=== PATIENT | female | born 1955 ===

== ENCOUNTER 2020-09-27 09:05 | Inpatient (IN) ==
[2020-09-27] MEDS ORDERED: GLUCAGON 1 MG VIAL IM PRN (09:41)
[2020-09-27] MEDS ORDERED: DEXTROSE 50% 25 GM/50 ML VIAL IV PRN (09:41)
[2020-09-27] MEDS: INSULIN REGULAR 100 UNIT/ML SUBCUT SCH ×2 (20:45→22:48)
[2020-09-27] MEDS: METOPROLOL TARTRATE 25 MG TABLET PO SCH (22:51)
[2020-09-27] MEDS: SODIUM CHLORIDE 0.9% 1,000 ML IV SCH (22:54)
[2020-09-28 04:28] LABS: ABG Base Excess 10.7 MMOL/L (-2.5-2.5); ABG HCO3 36.8 MMOL/L (20-26); ABG Oxygen Saturation 96.7 % (95-100); ABG PCO2 61.2 MM HG (35-48); ABG PH 7.397 (7.35-7.45); ABG PO2 95.5 MM HG (80-95); ABG TCO2 38.7 MMOL/L (23-27); Allen Test Positive
[2020-09-28 05:37] LABS: Basophils % 0.2 % (0.0-0.8); Eosinophils % 0.6 % (0.00-10.9); Hematocrit 21.9 VOL% (35.7-47.0); Hemoglobin 6.7 GM/DL (12.0-16.0); Immature Granulocytes % 0.2 %; Immature Granulocytes Absolute 0.01 #; Lymphocytes # 1.5 10*3/uL (1.4-4.0); Lymphocytes % 28.5 % (21.3-54.2); Mean Corpuscular HGB Conc 30.6 GM/DL (32-36); Mean Corpuscular Volume 73.2 FL (87-102); Mean Platelet Volume 13.2 FL (9.6-12.0); Monocytes % 9.1 % (1.7-12.7); Neutrophils % 61.4 % (38.7-73.9); Platelet Count 200 T/CUMM (130-400); Red Blood Count 2.99 MC/CUMM (3.8-5.5); Red Cell Distribution Width 18.2 % (9.3-17.3); White Blood Count 5.2 T/CUMM (4-12)
[2020-09-28 05:47] LABS: Total Protein 7.6 G/DL (6.4-8.3)
[2020-09-28 06:20] LABS: Hypochromasia 3+; Microcytosis 2+; Platelet Estimate Normal; Target Cells 1+
[2020-09-28] MEDS ORDERED: SODIUM CHLORIDE 0.9% 1,000 ML IV PRN (08:37)
[2020-09-28] MEDS ORDERED: FUROSEMIDE 40 MG/4 ML VIAL IV ONE ×2 (08:39→17:30)
[2020-09-28] MEDS: METOPROLOL TARTRATE 25 MG TABLET PO SCH ×2 (09:17→21:24)
[2020-09-28] MEDS: FUROSEMIDE 80 MG TABLET PO SCH (09:17)
[2020-09-28] MEDS: ATORVASTATIN 80 MG TABLET PO SCH (09:17)
[2020-09-28] MEDS: INSULIN REGULAR 100 UNIT/ML SUBCUT SCH ×4 (09:18→21:48)
[2020-09-28] MEDS ORDERED: PANTOPRAZOLE 40 MG TABLET PO ONE (10:15)
[2020-09-28] MEDS ORDERED: DIAZEPAM 5 MG TABLET PO ONE (10:15)
[2020-09-28] MEDS ORDERED: ALBUTEROL/IPRATROPIUM 3 ML NEB RESP TX ONE (11:24)
[2020-09-28] MEDS: ALBUTEROL/IPRATROPIUM 3 ML NEB RESP TX SCH ×2 (13:16→19:51)
[2020-09-28] MEDS: SODIUM CHLORIDE 0.9% 1,000 ML IV SCH (13:34)
[2020-09-28] MEDS: CHLORHEXIDINE 4% SOLN 118 ML BOTTLE TOP SCH ×2 (17:20→21:28)
[2020-09-29] MEDS: oxyCODONE/ACETAMINOPHEN 5-325 MG TABLET PO PRN (00:34)
[2020-09-29] MEDS: ALBUTEROL/IPRATROPIUM 3 ML NEB RESP TX SCH ×4 (01:25→19:05)
[2020-09-29 01:39] LABS: Hematocrit 25.8 VOL% (35.7-47.0); Hemoglobin 8.2 GM/DL (12.0-16.0)
[2020-09-29] MEDS ORDERED: PAPAVERINE 60 MG/2 ML VIAL ONE (04:24)
[2020-09-29] MEDS ORDERED: VANCOMYCIN 500 MG VIAL ONE (04:25)
[2020-09-29] MEDS ORDERED: VANCOMYCIN 1,000 MG VIAL ONE (04:25)
[2020-09-29] MEDS: CHLORHEXIDINE 4% SOLN 118 ML BOTTLE TOP SCH (04:45)
[2020-09-29] MEDS: METOPROLOL TARTRATE 25 MG TABLET PO SCH ×2 (05:45→12:17)
[2020-09-29] MEDS ORDERED: CALCIUM CHLORIDE 1,000 MG/10 ML VIAL IV ONE (05:55)
[2020-09-29] MEDS ORDERED: ePHEDrine 50 MG/ML VIAL ONE (05:55)
[2020-09-29] MEDS ORDERED: MIDAZOLAM 10 MG/2 ML VIAL ONE ×3 (05:55→06:09)
[2020-09-29] MEDS ORDERED: SUFentanil 250 MCG/5 ML AMP ONE (05:55)
[2020-09-29] MEDS ORDERED: VECURONIUM 10 MG VIAL IV ONE ×4 (05:56)
[2020-09-29] MEDS ORDERED: FUROSEMIDE 20 MG/2 ML VIAL ONE ×3 (05:56→11:16)
[2020-09-29] MEDS ORDERED: ETOMIDATE 40 MG/20 ML VIAL IV ONE (05:56)
[2020-09-29] MEDS ORDERED: MINERAL OIL/PETROLATUM OPH OINT 3.5 GM TUBE ONE (05:56)
[2020-09-29] MEDS ORDERED: LIDOCAINE 2% 5 ML VIAL ONE ×2 (05:56→11:15)
[2020-09-29] MEDS ORDERED: HEPARIN/NACL 0.9% 2 UNITS/ML 500 ML IV ONE (05:57)
[2020-09-29] MEDS ORDERED: PHENYLEPHRINE DRIP 20 MG/250 ML PREMIX IV ONE (05:57)
[2020-09-29] MEDS ORDERED: AMINOCAPROIC ACID 5,000 MG/20 ML VIAL ONE ×4 (05:57)
[2020-09-29] MEDS ORDERED: NITROGLYCERIN DRIP 50 MG/250 ML BOTTLE IV ONE (05:57)
[2020-09-29] MEDS ORDERED: SODIUM CHLORIDE 0.9% 1,000 ML IV ONE ×2 (05:58→11:55)
[2020-09-29] MEDS ORDERED: SEVOFLURANE 1 UNIT/15 MINUTE INH ONE ×14 (05:58→11:54)
[2020-09-29] MEDS ORDERED: SODIUM CHLORIDE 0.9% 250 ML IV ONE (05:58)
[2020-09-29] MEDS ORDERED: LACTATED RINGERS 1,000 ML IV ONE (05:58)
[2020-09-29] MEDS ORDERED: DIAZEPAM 5 MG TABLET PO ONE (06:00)
[2020-09-29] MEDS ORDERED: CEFUROXIME INJ 1,500 MG in SODIUM CHLORIDE 0.9% 100 ML IV ONE (06:00)
[2020-09-29] MEDS ORDERED: PANTOPRAZOLE 40 MG TABLET PO ONE (06:00)
[2020-09-29] MEDS ORDERED: ALBUTEROL 2.5 MG/3 ML NEB RESP TX ONE (06:25)
[2020-09-29 08:26] LABS: ABG Base Excess 8.5 MMOL/L (-2.5-2.5); ABG HCO3 32.3 MMOL/L (20-26); ABG PCO2 46.3 MM HG (35-48); ABG PH 7.464 (7.35-7.45); ABG TCO2 31.1 MMOL/L (23-27); Glucose Heart Surgery 76 MG/DL (74-106); Hematocrit Heart Surgery 23.7 PERCENT (37-47); Hemoglobin Heart Surgery 7.6 G/DL (12.0-16.0); Ionized Calcium Arterial 1.11 MMOL/L (1.21-1.46); PCO2 Patient Temp Arterial 46.3 MMHG; PH Patient Temp Arterial 7.464; Patient Temperature 37 CELCIUS; Potassium Heart/CVR 3.6 MMOL/L (3.5-5.1); Sodium Heart/CVR 139 MMOL/L (135-145)
[2020-09-29] MEDS ORDERED: CHLORHEXIDINE 0.12% ORAL RINSE 60 ML BOTTLE SWISH/SPIT SCH (09:00)
[2020-09-29 09:06] LABS: Bilirubin,Urine Negative (Negative); Blood, Urine Negative (Negative); Glucose,Urine (UA) Negative (Negative); Hyaline Casts,Urine 4 /LPF (0-3); Ketones,Urine Negative (Negative); Mucus,Urine Occasional /LPF (Occasional); Nitrite,Urine Negative (Negative); Protein,Urine 100 MG/DL; RBC,Urine 1 /HPF (0-4); Squamous Epithelial Cell,Urine Occasional /HPF (0-10); Urine Appearance CLEAR (Clear); Urine Color Yellow (Yellow); WBC,Urine <1 /HPF (0-6)
[2020-09-29] MEDS ORDERED: diphenhydrAMINE 50 MG/1 ML VIAL ONE (09:41)
[2020-09-29] MEDS ORDERED: EPINEPHrine 1 MG/ML VIAL ONE ×2 (09:41→09:47)
[2020-09-29] MEDS ORDERED: PHENYLEPHRINE DRIP 40 MG/250 ML PREMIX IV ONE (09:45)
[2020-09-29] MEDS ORDERED: SODIUM BICARBONATE 50 MEQ/50 ML VIAL IV ONE ×2 (09:45→11:16)
[2020-09-29] MEDS ORDERED: NITROPRUSSIDE 50 MG/2 ML VIAL ONE (09:45)
[2020-09-29] MEDS ORDERED: POTASSIUM CHLORIDE RIDER 100 ML IV ONE (09:45)
[2020-09-29] MEDS ORDERED: CALCIUM CHLORIDE 1,000 MG/10 ML SYRINGE IV ONE (09:46)
[2020-09-29] MEDS ORDERED: ALBUMIN 5% 12.5 GM/250 ML VIAL IV ONE ×2 (09:47)
[2020-09-29] MEDS ORDERED: LIDOCAINE 100 MG/5 ML SYRINGE ONE (09:47)
[2020-09-29] MEDS ORDERED: ATROPINE 1 MG/10 ML SYRINGE ONE (09:47)
[2020-09-29] MEDS ORDERED: EPINEPHrine 1 MG/10 ML SYRINGE ONE (09:47)
[2020-09-29] MEDS ORDERED: FAMOTIDINE 20 MG/2 ML VIAL IV ONE (09:47)
[2020-09-29 09:52] LABS: Hematocrit Heart Surgery 24.6 PERCENT (37-47); Hemoglobin Heart Surgery 7.9 G/DL (12.0-16.0); PCO2 Patient Temp Venous 31.6 MM HG; PH Patient Temp Venous 7.573; VBG Base Excess 7.1 MEQ/L (0-4); VBG HCO3 30.7 MEQ/L (24-28); VBG Oxygen Saturation 82.3 %; VBG PCO2 36.5 MMHG (41-51); VBG PH 7.527; VBG PO2 41.8 MMHG (17-40)
[2020-09-29 10:27] LABS: Hematocrit Heart Surgery 28.2 PERCENT (37-47); Hemoglobin Heart Surgery 9.1 G/DL (12.0-16.0); PCO2 Patient Temp Venous 36.1 MM HG; PH Patient Temp Venous 7.519; PO2 Patient Temp Venous 41.6 MM HG; Potassium Heart/CVR 4.1 MMOL/L (3.5-5.1); VBG Base Excess 6.3 MEQ/L (0-4); VBG HCO3 29.9 MEQ/L (24-28); VBG Oxygen Saturation 82.9 %; VBG PCO2 37.9 MMHG (41-51); VBG PH 7.503; VBG PO2 44.6 MMHG (17-40)
[2020-09-29 10:57] LABS: ABG Base Excess 4.5 MMOL/L (-2.5-2.5); ABG HCO3 28.4 MMOL/L (20-26); ABG Oxygen Saturation 93.5 % (95-100); ABG PCO2 45.2 MM HG (35-48); ABG PH 7.422 (7.35-7.45); ABG PO2 69.2 MM HG (80-95); ABG TCO2 27.1 MMOL/L (23-27); Glucose Heart Surgery 166 MG/DL (74-106); Hematocrit Heart Surgery 28.6 PERCENT (37-47); Hemoglobin Heart Surgery 9.2 G/DL (12.0-16.0); Ionized Calcium Arterial 1.12 MMOL/L (1.21-1.46); PCO2 Patient Temp Arterial 45.2 MMHG; PH Patient Temp Arterial 7.422; PO2 Patient Temp Arterial 69.2 MM HG; Patient Temperature 37 CELCIUS; Potassium Heart/CVR 3.2 MMOL/L (3.5-5.1); Sodium Heart/CVR 139 MMOL/L (135-145)
[2020-09-29] MEDS ORDERED: ALBUMIN 25% 25 GM/100 ML VIAL IV ONE (11:15)
[2020-09-29] MEDS ORDERED: DEXTROSE 5% KCL 20 MEQ 20 MEQ/1,000 ML BAG IV ONE (11:15)
[2020-09-29] MEDS ORDERED: MANNITOL 100 GM/500 ML BAG IV ONE (11:15)
[2020-09-29] MEDS ORDERED: methylPREDNISolone SOD SUC 1,000 MG/8 ML VIAL ONE (11:15)
[2020-09-29] MEDS ORDERED: MAGNESIUM SULFATE 5 GM/10 ML VIAL IV ONE (11:15)
[2020-09-29] MEDS ORDERED: PROTAMINE SULFATE 250 MG/25 ML VIAL IV ONE (11:16)
[2020-09-29] MEDS ORDERED: HEPARIN 10,000 UNIT/10 ML VIAL ONE (11:16)
[2020-09-29] MEDS ORDERED: NITROPRUSSIDE 100 MG in DEXTROSE 5% 250 ML IV PRN (11:20)
[2020-09-29] MEDS ORDERED: MORPHINE 10 MG/1 ML VIAL IV PRN (11:20)
[2020-09-29] MEDS ORDERED: CHLORHEXIDINE 4% SOLN 118 ML BOTTLE TOP PRN (11:20)
[2020-09-29] MEDS ORDERED: MIDAZOLAM 10 MG/2 ML VIAL IV PRN (11:20)
[2020-09-29] MEDS ORDERED: DEXTROSE 50% 25 GM/50 ML VIAL IV PRN ×2 (11:20)
[2020-09-29] MEDS ORDERED: MAGNESIUM SULF RIDER 2 GM in PREMIX 1 EACH IV PRN (11:20)
[2020-09-29] MEDS ORDERED: LACTATED RINGERS 250 ML IV PRN (11:20)
[2020-09-29] MEDS ORDERED: MAGNESIUM SULF RIDER 4 GM in PREMIX 1 EACH IV PRN (11:20)
[2020-09-29] MEDS ORDERED: ONDANSETRON 4 MG/2 ML VIAL IV PRN (11:20)
[2020-09-29] MEDS ORDERED: MIDAZOLAM 2 MG/2 ML VIAL IV PRN (11:20)
[2020-09-29] MEDS ORDERED: CALCIUM CHLORIDE 1,000 MG/10 ML SYRINGE IV PRN (11:20)
[2020-09-29] MEDS ORDERED: ALBUMIN 5% 12.5 GM in PREMIX 1 EACH IV PRN (11:20)
[2020-09-29] MEDS ORDERED: INSULIN REGULAR 100 UNIT/ML IV PRN (11:20)
[2020-09-29] MEDS ORDERED: PHENYLEPHRINE DRIP 40 MG/250 ML PREMIX IV PRN (11:20)
[2020-09-29] MEDS ORDERED: INSULIN REGULAR 100 UNIT/ML IV ONE (11:20)
[2020-09-29] MEDS ORDERED: VECURONIUM 10 MG VIAL IV PRN ×2 (11:20)
[2020-09-29] MEDS ORDERED: ACETAMINOPHEN 650 MG SUPP RECTAL PRN (11:20)
[2020-09-29] MEDS: NITROGLYCERIN DRIP 50 MG/250 ML BOTTLE IV PRN (11:40)
[2020-09-29] MEDS: POTASSIUM CHLORIDE RIDER 20 MEQ in PREMIX 1 EACH IV PRN ×3 (11:40→17:07)
[2020-09-29] MEDS: SODIUM CHLORIDE 0.45% 1,000 ML IV SCH ×2 (11:40)
[2020-09-29] MEDS ORDERED: SODIUM CHLORIDE 0.9% 100 ML IV ONE (11:55)
[2020-09-29] MEDS: POTASSIUM CHLORIDE RIDER 10 MEQ in PREMIX 1 EACH IV PRN ×3 (12:10→17:40)
[2020-09-29 12:13] LABS: ABG Base Excess 6.3 MMOL/L (-2.5-2.5); ABG HCO3 30.1 MMOL/L (20-26); ABG Oxygen Saturation 98.8 % (95-100); ABG PCO2 37.3 MM HG (35-48); ABG PH 7.509 (7.35-7.45); ABG TCO2 26.9 MMOL/L (23-27); Glucose Heart Surgery 170 MG/DL (74-106); Hematocrit Heart Surgery 30.3 PERCENT (37-47); Hemoglobin Heart Surgery 9.8 G/DL (12.0-16.0); Potassium Heart/CVR 4.2 MMOL/L (3.5-5.1)
[2020-09-29] MEDS: INSULIN REGULAR 100 UNIT/ML SUBCUT SCH ×2 (12:13→12:16)
[2020-09-29 12:15] LABS: Basophils % 0.1 % (0.0-0.8); Eosinophils % 0.2 % (0.00-10.9); Hematocrit 28.7 VOL% (35.7-47.0); Hemoglobin 9.7 GM/DL (12.0-16.0); Immature Granulocytes % 1.1 %; Immature Granulocytes Absolute 0.12 #; Lymphocytes # 1.2 10*3/uL (1.4-4.0); Lymphocytes % 11.2 % (21.3-54.2); Mean Corpuscular HGB Conc 33.8 GM/DL (32-36); Mean Corpuscular Volume 76.9 FL (87-102); Monocytes % 4.3 % (1.7-12.7); NRBC # 0.02 10*3/uL; Neutrophils % 83.1 % (38.7-73.9); Platelet Count 196 T/CUMM (130-400); Red Blood Count 3.73 MC/CUMM (3.8-5.5); Red Cell Distribution Width 19.4 % (9.3-17.3)
[2020-09-29] MEDS: FUROSEMIDE 80 MG TABLET PO SCH (12:16)
[2020-09-29] MEDS: ATORVASTATIN 80 MG TABLET PO SCH (12:16)
[2020-09-29] MEDS: SODIUM CHLORIDE 0.9% 1,000 ML IV SCH (12:26)
[2020-09-29 12:34] LABS: INR 1.5; PT Patient Result 15.4 SECS (9.8-11.9)
[2020-09-29 12:46] LABS: Anisocytosis 4+; Hypochromasia 4+; Macrocytosis 2+; Microcytosis 2+; Poikilocytosis 2+
[2020-09-29 12:47] LABS: Schistocytes Few
[2020-09-29 12:48] LABS: Albumin 3.3 G/DL (3.4-5.0); Bilirubin,Total 1.9 MG/DL (0.2-1.0); Calcium 9.5 MG/DL (8.5-10.1); Osmolality,Calculated 285.7 MOS/KG (273-304); Total Protein 6.8 G/DL (6.4-8.3)
[2020-09-29 12:50] LABS: CKMB % 6.2 %; Stomatocytes Few
[2020-09-29 12:51] LABS: Platelet Estimate Adequate; Target Cells 2+
[2020-09-29 12:59] LABS: Troponin I 5.44 NG/ML (0.00-0.045)
[2020-09-29 13:13] LABS: ABG Base Excess 6.7 MMOL/L (-2.5-2.5); ABG Oxygen Saturation 95.2 % (95-100); ABG PH 7.562 (7.35-7.45); ABG PO2 72.9 MM HG (80-95); Glucose Heart Surgery 154 MG/DL (74-106); Potassium Heart/CVR 3.6 MMOL/L (3.5-5.1)
[2020-09-29 17:47] LABS: ABG Base Excess 3.9 MMOL/L (-2.5-2.5); ABG HCO3 27.9 MMOL/L (20-26); ABG Oxygen Saturation 95.8 % (95-100); ABG PCO2 32.3 MM HG (35-48); ABG PH 7.522 (7.35-7.45); ABG PO2 75.2 MM HG (80-95); ABG TCO2 23.9 MMOL/L (23-27); Glucose Heart Surgery 151 MG/DL (74-106); Hematocrit Heart Surgery 31.9 PERCENT (37-47); Hemoglobin Heart Surgery 10.3 G/DL (12.0-16.0); Potassium Heart/CVR 4.9 MMOL/L (3.5-5.1)
[2020-09-29 19:33] LABS: ABG Base Excess 3.9 MMOL/L (-2.5-2.5); ABG HCO3 27.9 MMOL/L (20-26); ABG Oxygen Saturation 95.7 % (95-100); ABG PCO2 33.9 MM HG (35-48); ABG PH 7.506 (7.35-7.45); ABG PO2 75.5 MM HG (80-95); ABG TCO2 24.2 MMOL/L (23-27); Glucose Heart Surgery 152 MG/DL (74-106); Hematocrit Heart Surgery 31.6 PERCENT (37-47); Hemoglobin Heart Surgery 10.2 G/DL (12.0-16.0); Potassium Heart/CVR 4.6 MMOL/L (3.5-5.1)
[2020-09-29] MEDS: INSULIN REGULAR DRIP 100 ML IV SCH (19:37)
[2020-09-29] MEDS: CEFUROXIME INJ 1,500 MG in SYRINGE 1 EACH IV SCH (19:57)
[2020-09-29 20:59] LABS: ABG Base Excess 4.7 MMOL/L (-2.5-2.5); ABG HCO3 28.6 MMOL/L (20-26); ABG Oxygen Saturation 95.4 % (95-100); ABG PCO2 37.6 MM HG (35-48); ABG PH 7.484 (7.35-7.45); ABG PO2 77.5 MM HG (80-95); ABG TCO2 25.6 MMOL/L (23-27); Glucose Heart Surgery 150 MG/DL (74-106); Hematocrit Heart Surgery 31.3 PERCENT (37-47); Hemoglobin Heart Surgery 10.1 G/DL (12.0-16.0); Potassium Heart/CVR 4.5 MMOL/L (3.5-5.1)
[2020-09-29] MEDS: MORPHINE 4 MG/1 ML VIAL IV PRN (21:12)
[2020-09-29] MEDS: CHLORHEXIDINE 0.12% ORAL RINSE 60 ML BOTTLE SWISH/SPIT SCH (21:13)
[2020-09-29 21:37] LABS: CKMB % 4.6 %
[2020-09-29 21:50] LABS: Troponin I 5.07 NG/ML (0.00-0.045)
[2020-09-29] MEDS ORDERED: FUROSEMIDE 40 MG/4 ML VIAL IV ONE (21:58)
[2020-09-29] MEDS ORDERED: FUROSEMIDE 40 MG/4 ML VIAL ONE (22:00)
[2020-09-29 23:00] LABS: ABG Oxygen Saturation 93.2 % (95-100); ABG PCO2 36.6 MM HG (35-48); ABG PH 7.484 (7.35-7.45); ABG PO2 68.1 MM HG (80-95); Glucose Heart Surgery 147 MG/DL (74-106); Hematocrit Heart Surgery 30.3 PERCENT (37-47); Hemoglobin Heart Surgery 9.8 G/DL (12.0-16.0); Potassium Heart/CVR 4.4 MMOL/L (3.5-5.1)
[2020-09-29 23:54] LABS: ABG Base Excess 4.7 MMOL/L (-2.5-2.5); ABG HCO3 28.5 MMOL/L (20-26); ABG Oxygen Saturation 93.4 % (95-100); ABG PCO2 37.3 MM HG (35-48); ABG PH 7.487 (7.35-7.45); ABG PO2 67.7 MM HG (80-95); ABG TCO2 25.6 MMOL/L (23-27); Glucose Heart Surgery 147 MG/DL (74-106); Hematocrit Heart Surgery 30.8 PERCENT (37-47); Potassium Heart/CVR 4.5 MMOL/L (3.5-5.1)
[2020-09-30] MEDS: NITROGLYCERIN DRIP 50 MG/250 ML BOTTLE IV PRN (01:08)
[2020-09-30] MEDS: ALBUTEROL/IPRATROPIUM 3 ML NEB RESP TX SCH ×4 (01:47→19:52)
[2020-09-30 01:48] LABS: ABG Base Excess 5.5 MMOL/L (-2.5-2.5); ABG HCO3 29.3 MMOL/L (20-26); ABG Oxygen Saturation 94.1 % (95-100); ABG PCO2 34.4 MM HG (35-48); ABG PH 7.524 (7.35-7.45); ABG PO2 67.1 MM HG (80-95); ABG TCO2 25.7 MMOL/L (23-27); Glucose Heart Surgery 148 MG/DL (74-106); Hematocrit Heart Surgery 30.2 PERCENT (37-47); Hemoglobin Heart Surgery 9.8 G/DL (12.0-16.0); Potassium Heart/CVR 4.5 MMOL/L (3.5-5.1)
[2020-09-30] MEDS: MORPHINE 4 MG/1 ML VIAL IV PRN ×5 (03:36→21:27)
[2020-09-30 03:57] LABS: Basophils % 0.1 % (0.0-0.8); Hematocrit 29.1 VOL% (35.7-47.0); Hemoglobin 9.7 GM/DL (12.0-16.0); Immature Granulocytes % 0.4 %; Immature Granulocytes Absolute 0.04 #; Lymphocytes # 0.6 10*3/uL (1.4-4.0); Lymphocytes % 6.1 % (21.3-54.2); Mean Corpuscular HGB Conc 33.3 GM/DL (32-36); Mean Corpuscular Volume 78.4 FL (87-102); Mean Platelet Volume 11.9 FL (9.6-12.0); Monocytes % 5.8 % (1.7-12.7); NRBC # 0.02 10*3/uL; Neutrophils % 87.6 % (38.7-73.9); Red Blood Count 3.71 MC/CUMM (3.8-5.5); Red Cell Distribution Width 19.9 % (9.3-17.3); White Blood Count 9.4 T/CUMM (4-12)
[2020-09-30 04:01] LABS: ABG Base Excess 4.8 MMOL/L (-2.5-2.5); ABG HCO3 28.7 MMOL/L (20-26); ABG Oxygen Saturation 98.3 % (95-100); ABG PCO2 35.5 MM HG (35-48); ABG PH 7.504 (7.35-7.45); ABG PO2 97.8 MM HG (80-95); ABG TCO2 25.4 MMOL/L (23-27); Glucose Heart Surgery 145 MG/DL (74-106); Hematocrit Heart Surgery 30.4 PERCENT (37-47); Hemoglobin Heart Surgery 9.8 G/DL (12.0-16.0); Platelet Count 156 T/CUMM (130-400); Potassium Heart/CVR 4.4 MMOL/L (3.5-5.1)
[2020-09-30 04:25] LABS: Albumin 3.1 G/DL (3.4-5.0); Bilirubin,Direct 0.86 MG/DL (0.0-0.20); Calcium 8.7 MG/DL (8.5-10.1); Osmolality,Calculated 286.5 MOS/KG (273-304); Total Protein 6.3 G/DL (6.4-8.3)
[2020-09-30 04:34] LABS: Troponin I 4.6 NG/ML (0.00-0.045)
[2020-09-30 04:35] LABS: Hypochromasia 2+; Platelet Estimate Normal; Target Cells Few
[2020-09-30] MEDS ORDERED: HALOPERIDOL 5 MG/ML AMP IM ONE (06:07)
[2020-09-30] MEDS ORDERED: HALOPERIDOL 5 MG/ML AMP IV ONE (06:15)
[2020-09-30] MEDS ORDERED: AMIODARONE INJ 450 MG in DEXTROSE 5% 241 ML IV SCH (06:30)
[2020-09-30] MEDS: CEFUROXIME INJ 1,500 MG in SYRINGE 1 EACH IV SCH ×2 (08:48→21:25)
[2020-09-30 08:51] LABS: ABG Base Excess 4.3 MMOL/L (-2.5-2.5); ABG HCO3 28.3 MMOL/L (20-26); ABG Oxygen Saturation 99.1 % (95-100); ABG PCO2 33.5 MM HG (35-48); ABG PH 7.515 (7.35-7.45); Glucose Heart Surgery 151 MG/DL (74-106); Hematocrit Heart Surgery 34.3 PERCENT (37-47); Hemoglobin Heart Surgery 11.1 G/DL (12.0-16.0); Potassium Heart/CVR 4.3 MMOL/L (3.5-5.1)
[2020-09-30 11:53] LABS: ABG Base Excess 3.6 MMOL/L (-2.5-2.5); ABG HCO3 27.7 MMOL/L (20-26); ABG Oxygen Saturation 98.9 % (95-100); ABG PCO2 45.1 MM HG (35-48); ABG PH 7.412 (7.35-7.45); Glucose Heart Surgery 154 MG/DL (74-106); Hematocrit Heart Surgery 31.6 PERCENT (37-47); Hemoglobin Heart Surgery 10.2 G/DL (12.0-16.0); Potassium Heart/CVR 4.4 MMOL/L (3.5-5.1)
[2020-09-30] MEDS ORDERED: FUROSEMIDE 40 MG/4 ML VIAL IV ONE ×2 (13:30→17:15)
[2020-09-30] MEDS ORDERED: AMIODARONE 200 MG TABLET PO ONE (14:07)
[2020-09-30] MEDS: CHLORHEXIDINE 0.12% ORAL RINSE 60 ML BOTTLE SWISH/SPIT SCH ×2 (14:48→21:26)
[2020-09-30 15:17] LABS: CKMB % 2.1 %
[2020-09-30 15:21] LABS: Troponin I 3.4 NG/ML (0.00-0.045)
[2020-09-30] MEDS: SODIUM CHLORIDE 0.45% 1,000 ML IV SCH ×4 (16:45→23:36)
[2020-09-30] MEDS: INSULIN REGULAR DRIP 100 ML IV SCH (16:56)
[2020-09-30 18:17] LABS: Calcium 8.4 MG/DL (8.5-10.1); Osmolality,Calculated 283.8 MOS/KG (273-304)
[2020-09-30] MEDS: FUROSEMIDE INJ 100 MG in SODIUM CHLORIDE 0.9% 90 ML IV SCH ×2 (19:03→23:37)
[2020-09-30 20:27] LABS: ABG Base Excess 1.1 MMOL/L (-2.5-2.5); ABG HCO3 25.3 MMOL/L (20-26); ABG Oxygen Saturation 88.7 % (95-100); ABG PCO2 48.5 MM HG (35-48); ABG PH 7.357 (7.35-7.45); ABG PO2 63.6 MM HG (80-95); ABG TCO2 24.7 MMOL/L (23-27); Glucose Heart Surgery 130 MG/DL (74-106); Hematocrit Heart Surgery 33.1 PERCENT (37-47); Hemoglobin Heart Surgery 10.7 G/DL (12.0-16.0)
[2020-10-01] MEDS: ALBUTEROL/IPRATROPIUM 3 ML NEB RESP TX SCH ×4 (00:26→19:16)
[2020-10-01 03:46] LABS: ABG Base Excess 1.4 MMOL/L (-2.5-2.5); ABG HCO3 25.5 MMOL/L (20-26); ABG Oxygen Saturation 89.2 % (95-100); ABG PCO2 47.9 MM HG (35-48); ABG PH 7.365 (7.35-7.45); ABG PO2 63.7 MM HG (80-95); ABG TCO2 24.8 MMOL/L (23-27); Glucose Heart Surgery 112 MG/DL (74-106); Hematocrit Heart Surgery 32.9 PERCENT (37-47); Hemoglobin Heart Surgery 10.6 G/DL (12.0-16.0)
[2020-10-01 03:55] LABS: Basophils % 0.1 % (0.0-0.8); Hematocrit 33.1 VOL% (35.7-47.0); Hemoglobin 10.6 GM/DL (12.0-16.0); Immature Granulocytes % 0.3 %; Immature Granulocytes Absolute 0.04 #; Lymphocytes # 0.6 10*3/uL (1.4-4.0); Lymphocytes % 4.6 % (21.3-54.2); Mean Corpuscular Volume 81.9 FL (87-102); Monocytes % 8.3 % (1.7-12.7); NRBC # 0.03 10*3/uL; Neutrophils % 86.7 % (38.7-73.9); Platelet Count 166 T/CUMM (130-400); Red Blood Count 4.04 MC/CUMM (3.8-5.5); Red Cell Distribution Width 21.3 % (9.3-17.3); White Blood Count 13.4 T/CUMM (4-12)
[2020-10-01 04:10] LABS: Albumin 3.1 G/DL (3.4-5.0); Bilirubin,Direct 0.89 MG/DL (0.0-0.20); Bilirubin,Total 1.3 MG/DL (0.2-1.0); Calcium 8.4 MG/DL (8.5-10.1); Osmolality,Calculated 281.1 MOS/KG (273-304); Total Protein 7.3 G/DL (6.4-8.3)
[2020-10-01] MEDS: FUROSEMIDE INJ 100 MG in SODIUM CHLORIDE 0.9% 90 ML IV SCH ×3 (04:37→15:36)
[2020-10-01] MEDS ORDERED: DOBUTamine 500 MG/250 ML PREMIX IV SCH (06:30)
[2020-10-01] MEDS: AMIODARONE 200 MG TABLET PO SCH ×2 (08:10→20:59)
[2020-10-01] MEDS: CHLORHEXIDINE 0.12% ORAL RINSE 60 ML BOTTLE SWISH/SPIT SCH ×2 (08:10→21:00)
[2020-10-01 12:36] LABS: ABG HCO3 27.8 MMOL/L (20-26); ABG Oxygen Saturation 88.5 % (95-100); ABG PCO2 49.8 MM HG (35-48); ABG PH 7.386 (7.35-7.45); ABG TCO2 27.2 MMOL/L (23-27); Glucose Heart Surgery 106 MG/DL (74-106); Hematocrit Heart Surgery 31.1 PERCENT (37-47); Potassium Heart/CVR 4.5 MMOL/L (3.5-5.1)
[2020-10-01] MEDS: SODIUM CHLORIDE 0.45% 1,000 ML IV SCH ×2 (14:10→14:11)
[2020-10-01 15:14] LABS: Basophils % 0.1 % (0.0-0.8); Hematocrit 31.5 VOL% (35.7-47.0); Immature Granulocytes % 0.5 %; Immature Granulocytes Absolute 0.05 #; Lymphocytes # 0.6 10*3/uL (1.4-4.0); Lymphocytes % 6.2 % (21.3-54.2); Mean Corpuscular HGB Conc 31.7 GM/DL (32-36); Mean Corpuscular Volume 82.5 FL (87-102); Monocytes % 9.5 % (1.7-12.7); Neutrophils % 83.7 % (38.7-73.9); Platelet Count 155 T/CUMM (130-400); Red Blood Count 3.82 MC/CUMM (3.8-5.5); Red Cell Distribution Width 22.1 % (9.3-17.3); White Blood Count 10.1 T/CUMM (4-12)
[2020-10-01] MEDS ORDERED: FUROSEMIDE INJ 100 MG in SODIUM CHLORIDE 0.9% 90 ML IV SCH (15:35)
[2020-10-01 15:37] LABS: Anisocytosis 1+; Target Cells Few
[2020-10-01 15:38] LABS: Platelet Estimate Adequate; Polychromasia Few; Schistocytes Few
[2020-10-02] MEDS: ALBUTEROL/IPRATROPIUM 3 ML NEB RESP TX SCH ×4 (01:05→19:00)
[2020-10-02] MEDS: oxyCODONE/ACETAMINOPHEN 5-325 MG TABLET PO PRN (01:21)
[2020-10-02] MEDS: SODIUM CHLORIDE 0.45% 1,000 ML IV SCH (01:25)
[2020-10-02 03:14] LABS: ABG Base Excess 6.2 MMOL/L (-2.5-2.5); ABG HCO3 29.9 MMOL/L (20-26); ABG Oxygen Saturation 90.3 % (95-100); ABG PCO2 47.9 MM HG (35-48); ABG PH 7.426 (7.35-7.45); ABG PO2 63.6 MM HG (80-95); ABG TCO2 28.8 MMOL/L (23-27); Glucose Heart Surgery 131 MG/DL (74-106); Hematocrit Heart Surgery 29.4 PERCENT (37-47); Hemoglobin Heart Surgery 9.5 G/DL (12.0-16.0); Potassium Heart/CVR 4.2 MMOL/L (3.5-5.1)
[2020-10-02 03:18] LABS: Basophils % 0.1 % (0.0-0.8); Hematocrit 30.4 VOL% (35.7-47.0); Hemoglobin 9.9 GM/DL (12.0-16.0); Immature Granulocytes % 0.5 %; Immature Granulocytes Absolute 0.05 #; Lymphocytes # 0.6 10*3/uL (1.4-4.0); Lymphocytes % 5.2 % (21.3-54.2); Mean Corpuscular HGB Conc 32.6 GM/DL (32-36); Mean Corpuscular Volume 81.1 FL (87-102); Mean Platelet Volume 11.6 FL (9.6-12.0); Monocytes % 7.8 % (1.7-12.7); NRBC # 0.02 10*3/uL; Neutrophils % 86.4 % (38.7-73.9); Platelet Count 151 T/CUMM (130-400); Red Blood Count 3.75 MC/CUMM (3.8-5.5); Red Cell Distribution Width 22.3 % (9.3-17.3); White Blood Count 11.1 T/CUMM (4-12)
[2020-10-02 03:43] LABS: Bilirubin,Direct 0.73 MG/DL (0.0-0.20); Bilirubin,Total 1.2 MG/DL (0.2-1.0); Calcium 8.3 MG/DL (8.5-10.1); Osmolality,Calculated 277.5 MOS/KG (273-304); Total Protein 7.6 G/DL (6.4-8.3)
[2020-10-02] MEDS: FUROSEMIDE INJ 100 MG in SODIUM CHLORIDE 0.9% 90 ML IV SCH (06:02)
[2020-10-02] MEDS: PANTOPRAZOLE 40 MG TABLET PO SCH (08:34)
[2020-10-02] MEDS: ASPIRIN EC 325 MG TABLET PO SCH (08:34)
[2020-10-02] MEDS: AMIODARONE 200 MG TABLET PO SCH ×2 (08:34→21:17)
[2020-10-02] MEDS: CHLORHEXIDINE 0.12% ORAL RINSE 60 ML BOTTLE SWISH/SPIT SCH ×2 (08:36→21:18)
[2020-10-02] MEDS: ATORVASTATIN 40 MG TABLET PO SCH (21:17)
[2020-10-03] MEDS: ALBUTEROL/IPRATROPIUM 3 ML NEB RESP TX SCH ×4 (00:36→19:36)
[2020-10-03] MEDS: FUROSEMIDE INJ 100 MG in SODIUM CHLORIDE 0.9% 90 ML IV SCH (02:19)
[2020-10-03 05:35] LABS: ABG Base Excess 8.8 MMOL/L (-2.5-2.5); ABG Oxygen Saturation 94.3 % (95-100); ABG PCO2 51.2 MM HG (35-48); ABG PO2 75.1 MM HG (80-95); ABG TCO2 35.6 MMOL/L (23-27)
[2020-10-03 06:10] LABS: Basophils % 0.1 % (0.0-0.8); Hematocrit 29.8 VOL% (35.7-47.0); Hemoglobin 9.4 GM/DL (12.0-16.0); Immature Granulocytes % 0.5 %; Immature Granulocytes Absolute 0.05 #; Lymphocytes # 0.6 10*3/uL (1.4-4.0); Mean Corpuscular HGB Conc 31.5 GM/DL (32-36); Mean Corpuscular Volume 82.3 FL (87-102); NRBC # 0.02 10*3/uL; Neutrophils % 85.4 % (38.7-73.9); Platelet Count 151 T/CUMM (130-400); Red Blood Count 3.62 MC/CUMM (3.8-5.5); Red Cell Distribution Width 22.3 % (9.3-17.3); White Blood Count 10.7 T/CUMM (4-12)
[2020-10-03 06:51] LABS: Calcium 8.1 MG/DL (8.5-10.1); Osmolality,Calculated 278.4 MOS/KG (273-304)
[2020-10-03] MEDS: ASPIRIN EC 325 MG TABLET PO SCH (08:47)
[2020-10-03] MEDS: PANTOPRAZOLE 40 MG TABLET PO SCH (08:47)
[2020-10-03] MEDS: AMIODARONE 200 MG TABLET PO SCH ×2 (08:47→21:22)
[2020-10-03] MEDS: CHLORHEXIDINE 0.12% ORAL RINSE 60 ML BOTTLE SWISH/SPIT SCH ×2 (08:47→21:25)
[2020-10-03] MEDS ORDERED: MAGNESIUM SULF RIDER 2 GM in PREMIX 1 EACH IV PRN (14:08)
[2020-10-03] MEDS ORDERED: SODIUM CHLOR 0.45% KCL 20 MEQ 20 MEQ/1,000 ML BAG IV SCH (14:08)
[2020-10-03] MEDS ORDERED: ZALEPLON 5 MG CAPSULE PO PRN (14:08)
[2020-10-03] MEDS ORDERED: GLUCAGON 1 MG VIAL IM PRN ×2 (14:08)
[2020-10-03] MEDS ORDERED: ONDANSETRON 4 MG/2 ML VIAL IV PRN (14:08)
[2020-10-03] MEDS ORDERED: MAGNESIUM HYDROXIDE SUSP 30 ML UDCUP PO PRN (14:08)
[2020-10-03] MEDS ORDERED: MORPHINE 4 MG/1 ML VIAL IV PRN (14:08)
[2020-10-03] MEDS ORDERED: oxyCODONE/ACETAMINOPHEN 5-325 MG TABLET PO PRN (14:08)
[2020-10-03] MEDS ORDERED: ALUMINUM/MAGNES/SIMETH MAX STR 30 ML UDCUP PO PRN (14:08)
[2020-10-03] MEDS ORDERED: DEXTROSE 50% 25 GM/50 ML VIAL IV PRN ×2 (14:08)
[2020-10-03] MEDS ORDERED: MAGNESIUM SULF RIDER 4 GM in PREMIX 1 EACH IV PRN (14:08)
[2020-10-03] MEDS: INSULIN REGULAR 100 UNIT/ML SUBCUT SCH ×3 (14:25→21:24)
[2020-10-03] MEDS: FUROSEMIDE 40 MG TABLET PO SCH ×2 (14:31→15:59)
[2020-10-03] MEDS: ACETAMINOPHEN 325 MG TABLET PO PRN (21:21)
[2020-10-03] MEDS: ATORVASTATIN 40 MG TABLET PO SCH (21:22)
[2020-10-04] MEDS: ALBUTEROL/IPRATROPIUM 3 ML NEB RESP TX SCH ×4 (01:20→18:51)
[2020-10-04] MEDS ORDERED: FUROSEMIDE 40 MG/4 ML VIAL IV ONE (06:00)
[2020-10-04 06:13] LABS: Basophils % 0.1 % (0.0-0.8); Eosinophils % 0.3 % (0.00-10.9); Hematocrit 31.1 VOL% (35.7-47.0); Hemoglobin 9.6 GM/DL (12.0-16.0); Immature Granulocytes % 0.4 %; Immature Granulocytes Absolute 0.04 #; Lymphocytes % 9.8 % (21.3-54.2); Mean Corpuscular HGB Conc 30.9 GM/DL (32-36); Mean Corpuscular Volume 84.3 FL (87-102); Mean Platelet Volume 12.6 FL (9.6-12.0); Monocytes % 9.8 % (1.7-12.7); Neutrophils % 79.6 % (38.7-73.9); Platelet Count 156 T/CUMM (130-400); Red Blood Count 3.69 MC/CUMM (3.8-5.5); Red Cell Distribution Width 22.1 % (9.3-17.3); White Blood Count 10.4 T/CUMM (4-12)
[2020-10-04 06:30] LABS: Alanine Aminotransferase 35 U/L (13-56); Albumin 2.7 G/DL (3.4-5.0); Alkaline Phosphatase 93 U/L (45-117); Aspartate Amino Transferase 25 U/L (0-37); Bilirubin,Indirect 0.6 MG/DL (0.0-1.0); Blood Urea Nitrogen 51 MG/DL (7-18); Calcium 8.1 MG/DL (8.5-10.1); Estimated Glom Filtration Rate 35 ML/MIN; Glucose 94 MG/DL (74-106); Total Protein 6.9 G/DL (6.4-8.3)
[2020-10-04 07:18] LABS: Anisocytosis 1+; Hypochromasia 2+; Macrocytosis 1+; Platelet Estimate Adequate; Polychromasia Slight; Target Cells Few
[2020-10-04] MEDS: INSULIN REGULAR 100 UNIT/ML SUBCUT SCH ×5 (09:31→20:54)
[2020-10-04] MEDS: CHLORHEXIDINE 0.12% ORAL RINSE 60 ML BOTTLE SWISH/SPIT SCH ×2 (09:31→20:54)
[2020-10-04] MEDS: FUROSEMIDE 40 MG TABLET PO SCH ×2 (09:34→15:03)
[2020-10-04] MEDS: ASPIRIN EC 325 MG TABLET PO SCH (09:34)
[2020-10-04] MEDS: DOCUSATE SODIUM 100 MG CAPSULE PO SCH (09:34)
[2020-10-04] MEDS: AMIODARONE 200 MG TABLET PO SCH ×2 (09:34→20:53)
[2020-10-04] MEDS: FERROUS SULFATE 325 MG TABLET PO SCH (09:35)
[2020-10-04] MEDS: POTASSIUM CHLORIDE 20 MEQ TABLET PO PRN ×2 (09:35→12:02)
[2020-10-04] MEDS: PANTOPRAZOLE 40 MG TABLET PO SCH (09:36)
[2020-10-04] MEDS: ATORVASTATIN 40 MG TABLET PO SCH (20:53)
[2020-10-05] MEDS: ALBUTEROL/IPRATROPIUM 3 ML NEB RESP TX SCH ×4 (01:40→19:09)
[2020-10-05 05:54] LABS: Basophils % 0.1 % (0.0-0.8); Eosinophils % 0.4 % (0.00-10.9); Hemoglobin 9.9 GM/DL (12.0-16.0); Immature Granulocytes % 0.6 %; Immature Granulocytes Absolute 0.07 #; Lymphocytes # 1.1 10*3/uL (1.4-4.0); Lymphocytes % 10.3 % (21.3-54.2); Mean Corpuscular Volume 84.8 FL (87-102); Mean Platelet Volume 12.5 FL (9.6-12.0); Monocytes % 9.6 % (1.7-12.7); Platelet Count 187 T/CUMM (130-400); Red Blood Count 3.89 MC/CUMM (3.8-5.5); Red Cell Distribution Width 22.2 % (9.3-17.3); White Blood Count 10.9 T/CUMM (4-12)
[2020-10-05 06:21] LABS: Alanine Aminotransferase 34 U/L (13-56); Albumin 2.9 G/DL (3.4-5.0); Alkaline Phosphatase 100 U/L (45-117); Aspartate Amino Transferase 20 U/L (0-37); Bilirubin,Indirect 0.4 MG/DL (0.0-1.0); Blood Urea Nitrogen 40 MG/DL (7-18); Calcium 8.8 MG/DL (8.5-10.1); Estimated Glom Filtration Rate 42 ML/MIN; Glucose 92 MG/DL (74-106); Osmolality,Calculated 279.1 MOS/KG (273-304); Total Protein 7.2 G/DL (6.4-8.3)
[2020-10-05 07:21] LABS: Hypochromasia 2+; Target Cells 2+
[2020-10-05 07:22] LABS: Platelet Estimate Normal
[2020-10-05] MEDS: INSULIN REGULAR 100 UNIT/ML SUBCUT SCH ×4 (08:27→22:15)
[2020-10-05] MEDS: LACTULOSE 20 GM/30 ML UDCUP PO PRN (09:05)
[2020-10-05] MEDS: ACETAMINOPHEN 325 MG TABLET PO PRN (09:06)
[2020-10-05] MEDS: ASPIRIN EC 325 MG TABLET PO SCH (09:06)
[2020-10-05] MEDS: POTASSIUM CHLORIDE 20 MEQ TABLET PO PRN ×2 (09:06→11:27)
[2020-10-05] MEDS: FUROSEMIDE 40 MG TABLET PO SCH ×3 (09:07→15:51)
[2020-10-05] MEDS: CHLORHEXIDINE 0.12% ORAL RINSE 60 ML BOTTLE SWISH/SPIT SCH ×2 (09:08→21:27)
[2020-10-05] MEDS: PANTOPRAZOLE 40 MG TABLET PO SCH (09:08)
[2020-10-05] MEDS: FERROUS SULFATE 325 MG TABLET PO SCH (09:08)
[2020-10-05] MEDS: AMIODARONE 200 MG TABLET PO SCH ×2 (09:08→21:27)
[2020-10-05] MEDS: DOCUSATE SODIUM 100 MG CAPSULE PO SCH (09:09)
[2020-10-05] MEDS: POLYETHYLENE GLYCOL POWDER 17 GM PACK PO PRN (09:43)
[2020-10-05] MEDS: ATORVASTATIN 40 MG TABLET PO SCH (21:27)
[2020-10-06] MEDS: ALBUTEROL/IPRATROPIUM 3 ML NEB RESP TX SCH ×4 (01:25→19:31)
[2020-10-06 04:49] LABS: Calcium 8.6 MG/DL (8.5-10.1); Osmolality,Calculated 275.4 MOS/KG (273-304)
[2020-10-06] MEDS ORDERED: LACTULOSE 20 GM/30 ML UDCUP PO ONE (08:05)
[2020-10-06] MEDS: INSULIN REGULAR 100 UNIT/ML SUBCUT SCH ×4 (08:07→21:02)
[2020-10-06] MEDS ORDERED: BISACODYL 5 MG TABLET PO ONE (09:25)
[2020-10-06] MEDS: ASPIRIN EC 325 MG TABLET PO SCH (09:45)
[2020-10-06] MEDS: POTASSIUM CHLORIDE 20 MEQ TABLET PO SCH (09:46)
[2020-10-06] MEDS: FUROSEMIDE 40 MG TABLET PO SCH ×2 (09:46→15:17)
[2020-10-06] MEDS: PANTOPRAZOLE 40 MG TABLET PO SCH (09:46)
[2020-10-06] MEDS: FERROUS SULFATE 325 MG TABLET PO SCH (09:46)
[2020-10-06] MEDS: DOCUSATE SODIUM 100 MG CAPSULE PO SCH (09:46)
[2020-10-06] MEDS: AMIODARONE 200 MG TABLET PO SCH ×2 (09:46→21:02)
[2020-10-06] MEDS: CHLORHEXIDINE 0.12% ORAL RINSE 60 ML BOTTLE SWISH/SPIT SCH ×2 (11:00→21:02)
[2020-10-06] MEDS: ACETAMINOPHEN 325 MG TABLET PO PRN (14:09)
[2020-10-06] MEDS: ATORVASTATIN 40 MG TABLET PO SCH (21:02)
[2020-10-07] MEDS: ALBUTEROL/IPRATROPIUM 3 ML NEB RESP TX SCH ×4 (00:39→19:52)
[2020-10-07 03:44] LABS: Basophils % 0.2 % (0.0-0.8); Eosinophils % 0.3 % (0.00-10.9); Immature Granulocytes % 1.1 %; Immature Granulocytes Absolute 0.11 #; Lymphocytes # 1.1 10*3/uL (1.4-4.0); Lymphocytes % 10.7 % (21.3-54.2); Mean Corpuscular HGB Conc 31.3 GM/DL (32-36); Mean Corpuscular Volume 81.6 FL (87-102); Mean Platelet Volume 11.6 FL (9.6-12.0); Monocytes % 8.7 % (1.7-12.7); Platelet Count 215 T/CUMM (130-400); Red Blood Count 3.92 MC/CUMM (3.8-5.5); Red Cell Distribution Width 21.8 % (9.3-17.3); White Blood Count 10.1 T/CUMM (4-12)
[2020-10-07 04:10] LABS: Alanine Aminotransferase 29 U/L (13-56); Albumin 2.9 G/DL (3.4-5.0); Alkaline Phosphatase 109 U/L (45-117); Aspartate Amino Transferase 23 U/L (0-37); Bilirubin,Indirect 0.8 MG/DL (0.0-1.0); Blood Urea Nitrogen 39 MG/DL (7-18); Calcium 9.2 MG/DL (8.5-10.1); Estimated Glom Filtration Rate 33 ML/MIN; Glucose 106 MG/DL (74-106); Osmolality,Calculated 276.2 MOS/KG (273-304); Total Protein 7.4 G/DL (6.4-8.3)
[2020-10-07] MEDS ORDERED: SODIUM PHOSPHATE ENEMA 133 ML BOTTLE RECTAL ONE (08:34)
[2020-10-07] MEDS: POTASSIUM CHLORIDE 20 MEQ TABLET PO SCH (08:52)
[2020-10-07] MEDS: FERROUS SULFATE 325 MG TABLET PO SCH (08:52)
[2020-10-07] MEDS: DOCUSATE SODIUM 100 MG CAPSULE PO SCH (08:52)
[2020-10-07] MEDS: ASPIRIN EC 325 MG TABLET PO SCH (08:52)
[2020-10-07] MEDS: PANTOPRAZOLE 40 MG TABLET PO SCH (08:52)
[2020-10-07] MEDS: FUROSEMIDE 40 MG TABLET PO SCH ×2 (08:52→16:12)
[2020-10-07] MEDS: CHLORHEXIDINE 0.12% ORAL RINSE 60 ML BOTTLE SWISH/SPIT SCH ×2 (08:53→21:48)
[2020-10-07] MEDS: POLYETHYLENE GLYCOL POWDER 17 GM PACK PO PRN (08:53)
[2020-10-07] MEDS: AMIODARONE 200 MG TABLET PO SCH ×2 (08:53→21:47)
[2020-10-07] MEDS: ACETAMINOPHEN 325 MG TABLET PO PRN (09:15)
[2020-10-07] MEDS: INSULIN REGULAR 100 UNIT/ML SUBCUT SCH ×4 (09:36→21:48)
[2020-10-07] MEDS: LACTULOSE 20 GM/30 ML UDCUP PO PRN (16:12)
[2020-10-07] MEDS ORDERED: ATORVASTATIN 80 MG TABLET PO SCH (21:00)
[2020-10-08] MEDS: ALBUTEROL/IPRATROPIUM 3 ML NEB RESP TX SCH ×2 (00:29→07:34)
[2020-10-08] MEDS: ACETAMINOPHEN 325 MG TABLET PO PRN ×2 (04:22→09:35)
[2020-10-08 05:52] LABS: Basophils % 0.2 % (0.0-0.8); Eosinophils % 0.2 % (0.00-10.9); Hematocrit 30.3 VOL% (35.7-47.0); Hemoglobin 9.6 GM/DL (12.0-16.0); Immature Granulocytes % 0.8 %; Immature Granulocytes Absolute 0.08 #; Lymphocytes # 1.4 10*3/uL (1.4-4.0); Lymphocytes % 13.4 % (21.3-54.2); Mean Corpuscular HGB Conc 31.7 GM/DL (32-36); Mean Platelet Volume 11.7 FL (9.6-12.0); Monocytes % 10.3 % (1.7-12.7); Neutrophils % 75.1 % (38.7-73.9); Platelet Count 226 T/CUMM (130-400); Red Blood Count 3.65 MC/CUMM (3.8-5.5); Red Cell Distribution Width 21.8 % (9.3-17.3); White Blood Count 10.1 T/CUMM (4-12)
[2020-10-08 06:14] LABS: Calcium 9.3 MG/DL (8.5-10.1); Osmolality,Calculated 276.2 MOS/KG (273-304)
[2020-10-08 06:39] LABS: Alanine Aminotransferase 37 U/L (13-56); Albumin 2.7 G/DL (3.4-5.0); Alkaline Phosphatase 118 U/L (45-117); Aspartate Amino Transferase 32 U/L (0-37); Bilirubin,Indirect 0.9 MG/DL (0.0-1.0); Blood Urea Nitrogen 37 MG/DL (7-18); Calcium 9.2 MG/DL (8.5-10.1); Estimated Glom Filtration Rate 39 ML/MIN; Glucose 103 MG/DL (74-106); Osmolality,Calculated 272.5 MOS/KG (273-304); Total Protein 7.5 G/DL (6.4-8.3)
[2020-10-08] MEDS ORDERED: ASCORBIC ACID 500 MG TABLET PO SCH (09:00)
[2020-10-08] MEDS: FUROSEMIDE 40 MG TABLET PO SCH (09:38)
[2020-10-08] MEDS: CHLORHEXIDINE 0.12% ORAL RINSE 60 ML BOTTLE SWISH/SPIT SCH (09:38)
[2020-10-08] MEDS: PANTOPRAZOLE 40 MG TABLET PO SCH (09:38)
[2020-10-08] MEDS: AMIODARONE 200 MG TABLET PO SCH (09:38)
[2020-10-08] MEDS: ASPIRIN EC 325 MG TABLET PO SCH (09:39)
[2020-10-08] MEDS: FERROUS SULFATE 325 MG TABLET PO SCH (09:39)
[2020-10-08] MEDS: POTASSIUM CHLORIDE 20 MEQ TABLET PO SCH (09:39)
[2020-10-08] MEDS: DOCUSATE SODIUM 100 MG CAPSULE PO SCH (09:39)
[2020-10-08] MEDS: INSULIN REGULAR 100 UNIT/ML SUBCUT SCH ×2 (09:39→14:15)
[2020-10-08 11:54] VITALS: BP 92/57
== END 2020-10-08 13:58 | disposition swing bed (61) | DRG 236 ==
LOC: N.TELEN 17:53 → N.CVR 09-29 11:19 → N.ICU 10-01 13:12 → N.CVR 10-01 13:14 → N.TELES 10-03 13:57